=== PATIENT | male | born 1980 | race African-American/Black ===

== ENCOUNTER → 2017-05-09 | Outpatient (CLI) | payer BC ==
--- NOTE | 2017-05-09 08:09 | CT ---
EXAMINATION TYPE: CT soft tissue neck w con DATE OF EXAM: 05/09/2017 8:02 AM COMPARISON: NONE HISTORY: Localized enlarged lymph node CT DLP: 681 mGycm Automated exposure control for dose reduction was used. CONTRAST: CT scan of the neck is performed following with IV Contrast, patient injected with 100 ml mL of Omnip aque 300. Axial images are obtained, coronal and sagittal reformatted images are reviewed. FINDINGS: Visualized portions of the lungs are clear. Visualized intracranial structures are normal. Visualized portions of the sinuses and mastoid air cells are clear. Review body height and alignment are maintained. Atlantoaxial relationships are normal. There is no s ignificant degenerative change. The major salivary glands are normal. The parapharyngeal soft tissues are normal. There is mild prominence of wall diameter measuring. The oropharyngeal and laryngeal soft tissues are normal. The thyroid gland enhances homogeneously. There is shotty deep cervical, superficial cervical and submental lymph nodes. No pathologically enla rged lymph nodes are seen. IMPRESSION: 1. MILD PROMINENCE OF THE WALL OF THE RING, LIKELY DUE TO TONSILLAR HYPERTROPHY. 2. NO PATHOLOGICALLY ENLARGED ADENOPATHY.
== END | disposition home or self-care (01) ==
LOC: RADCTMAIN 06:50
PROVIDERS: ATTEND Family Medicine
DX: R59.0 Localized enlarged lymph nodes (principal)
CPT/HCPCS: 70491; Q9967

== ENCOUNTER → 2018-01-04 | Outpatient (CLI) | payer BC ==
[2018-01-04 14:22] LABS: ALT 27 U/L (21-72); AST 23 U/L (17-59)
== END | disposition home or self-care (01) ==
LOC: LABWHC1 13:47
PROVIDERS: ATTEND Podiatrist Foot & Ankle Surgery
DX: K74.60 Unspecified cirrhosis of liver (principal)
CPT/HCPCS: 36415; 84450; 84460

== ENCOUNTER → 2018-04-24 | Outpatient (CLI) | payer BC ==
[2018-04-24 13:44] LABS: ALT 27 U/L (21-72); AST 22 U/L (17-59)
== END | disposition home or self-care (01) ==
LOC: LABWHC1 10:52
PROVIDERS: ATTEND Podiatrist Foot & Ankle Surgery
DX: K74.60 Unspecified cirrhosis of liver (principal)
CPT/HCPCS: 36415; 84450; 84460

== ENCOUNTER → 2023-04-04 | Outpatient (CLI) | payer BC ==
[2023-04-04 12:14] LABS: Glucose 114 mg/dL (74-99)
[2023-04-04 21:32] LABS: Hepatitis A Antibody IgM Non-Reactive (Non-Reactive); Hepatitis B Core IgM Non-Reactive (Non-Reactive); Hepatitis B Surface Antigen Non-Reactive (Non-Reactive); Hepatitis C IgG Antibody Reactive (Non-Reactive)
[2023-04-04 22:25] LABS: HIV 2 AB Non-Reactive (Non-Reactive); HIV AB P24 Non-Reactive (Non-Reactive); HIV P24 AG Non-Reactive (Non-Reactive)
[2023-04-04 23:23] LABS: HSV I IgG Interp POSITIVE; HSV II IgG Interp Negative (Negative)
[2023-04-05 01:17] LABS: Chol/HDL Ratio 3.76 Ratio; Estradiol 35.6 pg/mL; Follicle Stimulating Hormone 3.5 mIU/mL; LDL Cholesterol,Calculated 111.7 mg/dL (0.0-131.0); VLDL Calculation 10.94 mg/dL (5.00-40.00)
[2023-04-05 04:38] LABS: Toxoplasma Antibody (IgG) <3.0 IU/mL (<7.2); Toxoplasma Antibody (IgM) <3.0 AU/mL (<8.0)
[2023-04-05 06:15] LABS: Insulin Level 12.1 mIU/mL (3.0-25.0)
[2023-04-05 11:55] LABS: Parvovirus B-19 IgG Antibodies 3.07 INDEX (<=0.90)
[2023-04-06 13:38] LABS: C. trachomatis,PCR Negative (Negative)
[2023-04-06 13:56] LABS: N. gonorrhoeae,PCR Negative (Negative)
== END | disposition home or self-care (01) ==
LOC: LABWHC1 10:04
DX: Z11.3 Encounter for screening for infections with a predominantly sexual mode of transmission (principal)
CPT/HCPCS: 36415; 80061; 80074; 82627; 82670; 82947; 83001; 83525; 84403; 84443; 86644; 86645; 86695; 86696; 86704; 86705; 86747; 86777; 86778; 86780; 86850; 86900; 86901; 87340; 87390; 87491; 87591

== ENCOUNTER → 2023-05-21 | Outpatient (CLI) | payer BC ==
--- NOTE | 2023-05-21 08:39 | US ---
EXAMINATION TYPE: US groin RT DATE OF EXAM: 05/21/2023 COMPARISON: NONE CLINICAL INDICATION: Male, 42 years old with history of R19.10 INTRA-ABD AND PELVIC SWELLING, MASS AN D LUM; 2 palpable lumps rt groin TECHNIQUE: several images obtained at area of concern FINDINGS: lymphadenopathy noted in rt groin. Patient pointed out 2 palpable areas that corresponded to lymph nodes 1.) superior: 1.5x0.8x1.3cm 2.) inferior: 1.4x0.9x1.5cm IMPRESSION: Non enlarged lymph nodes in the left groin in the area of lump.
== END | disposition home or self-care (01) ==
LOC: RADUSWWP 08:00
PROVIDERS: ATTEND Family Medicine
DX: R19.00 Intra-abdominal and pelvic swelling, mass and lump, unspecified site (principal)

== ENCOUNTER → 2023-06-26 | Outpatient (CLI) | payer BC ==
--- NOTE | 2023-06-26 16:10 | US ---
EXAMINATION TYPE: US liver DATE OF EXAM: 06/26/2023 COMPARISON: NONE CLINICAL INDICATION: Male, 42 years old with history of Z86.19 PERSONAL HISTORY OF OTHER INFECTIOUS A ND PA; abn labs, possible Hep C TECHNIQUE: Multiple sonographic images of the right upper quadrant are obtained. FINDINGS: EXAM MEASUREMENTS: Liver Length: 14.3 cm Gallbladder Wall: 0.2 cm CBD: 0.5 cm Right Kidney: 11.2 x 4.7 x 4.9 cm Pancreas: The tail is limited due to bowel gas shadowing. Utilized portions show no gross abnormalit y. Liver: intercostal imagining due to bowel gas. No specific abnormality seen. Gallbladder: wnl Evidence for sonographic Lai's sign: no CBD: wnl Right Kidney: limited views due to habitus and bowel gas. No hydronephrosis. IMPRESSION: Limited by body habitus and bowel gas shadowing. No gallstones or biliary ductal dilatation or other specific abnormality seen.
== END | disposition home or self-care (01) ==
LOC: RADUSWWP 07:41
PROVIDERS: ATTEND Family Medicine
DX: R14.3 Flatulence (principal); R79.9 Abnormal finding of blood chemistry, unspecified; Z86.19 Personal history of other infectious and parasitic diseases
CPT/HCPCS: 76705

== ENCOUNTER → 2023-06-27 | Outpatient (CLI) | payer BC ==
[2023-06-27 15:52] LABS: ALT 34 U/L (10-49); AST 28 U/L (14-35); Albumin 4.4 d/dL (3.8-4.9); Albumin/Globulin Ratio 1.63 Ratio (1.60-3.17); Alkaline Phosphatase 64 U/L (41-126); BUN/Creat Ratio 10.36 Ratio (12.00-20.00); Blood Urea Nitrogen 11.4 mg/dL (9.0-27.0); Calcium 9.1 mg/dL (8.7-10.3); Carbon Dioxide 27.9 mmol/L (21.6-31.8); Chloride 104 mmol/L (96-109); Globulin 2.7 d/dL (1.6-3.3); Glucose 116 mg/dL (70-110); Potassium 4.7 mmol/L (3.5-5.5); Sodium 141 mmol/L (135-145); Total Bilirubin 0.3 mg/dL (0.3-1.2); Total Protein 7.1 d/dL (6.2-8.2)
[2023-06-27 16:33] LABS: Basophils # (A) 0.03 X 10*3/uL (0.00-0.10); Basophils % (A) 0.3 %; Eosinophils # (A) 0.14 X 10*3/uL (0.04-0.35); Eosinophils % (A) 1.5 %; HGB 14.2 d/dL (13.0-17.0); Lymphocytes # (A) 2.08 X 10*3/uL (0.90-5.00); Lymphocytes % (A) 22.2 %; MCH 27.8 pg (27.0-32.0); MCHC 31.6 d/dL (32.0-37.0); MCV 88.2 FL (80.0-97.0); Mean Platelet Volume 10.9 FL (9.5-12.2); Monocytes # (A) 0.71 X 10*3/uL (0.20-1.00); Monocytes % (A) 7.6 %; NRBC Per 100 WBC 0 X 10*3/uL (0.00-0.01); Neutrophils # (A) 6.37 X 10*3/uL (1.80-7.70); Neutrophils % (A) 68.1 %; Platelet Count 220 X 10*3/uL (140-440); RDW 13.2 % (11.5-14.5); WBC 9.36 X 10*3/uL (4.50-10.00)
[2023-06-28 15:43] LABS: HCV Qualitative Result Not detected (Not detected); HCV Quant Log <1.08 (<1.08); HCV Quantitative Result <12 IU/mL (<12)
== END | disposition home or self-care (01) ==
LOC: LABWHC1 09:39
PROVIDERS: ATTEND Internal Medicine Gastroenterology
DX: Z86.19 Personal history of other infectious and parasitic diseases (principal)
CPT/HCPCS: 36415; 80053; 85025; 87522

== ENCOUNTER 2024-07-10 20:14 | Emergency (ER) | payer BC, OTHER ==
[2024-07-10 20:33] VITALS: RESP 16
[2024-07-10 21:43] VITALS: BP 155/98; PULSE 81; TEMP 98.5
== END 2024-07-10 21:43 | disposition home or self-care (01) ==
LOC: EC 20:14
DX: Z02.83 Encounter for blood-alcohol and blood-drug test (principal)
CPT/HCPCS: 99499